=== PATIENT | male | born 1965 | race Asian ===

== ENCOUNTER 2022-11-14 01:17 | Inpatient (IN) | payer OTHER ==
[~2022-11-14] VITALS: Ht 167.6 cm; Wt 79.8 kg
--- NOTE | 2022-11-14 01:22 | NUR ---
PT CLAUDE ALS. TAKEN TO BED 2
[2022-11-14 01:23] VITALS: BP 118/67
--- NOTE | 2022-11-14 01:40 | NUR ---
Pt BIB BLS ambulance from home with c/o bloody stool. Pt reports he had loose stools with bright red blood x2 days. (+) Nausea, (-) Vomiting, fever, abd pain. Arrived to ED in no acute distress. Breathing adequately on RA. Addendum: 11/14/22 at 0317 by [id number] ALS*
--- NOTE | 2022-11-14 01:42 | NUR ---
MD Nieves at bedside examining pt.
[2022-11-14] MEDS ORDERED: NACL 0.9% 1,000 ML IV ONE ×2 (01:50→04:10)
[2022-11-14 02:10] LABS: BASOPHILS # (AUTO) 0.1 K/uL (0.00-0.22); BASOPHILS % (AUTO) 0.7 % (0.0-2.0); EOSINOPHILS # (AUTO) 0.2 K/uL (0-0.4); EOSINOPHILS % (AUTO) 1.9 % (0.0-4.0); HEMATOCRIT 31.6 % (36-52); HEMOGLOBIN 10.6 g/dL (12.0-18.0); LYMPHOCYTES # (AUTO) 1.7 K/uL (2.0-11.5); LYMPHOCYTES % (AUTO) 16.5 % (20.5-51.1); MEAN CORPUSCULAR HEMOGLOBIN 29 pg (27-31); MEAN CORPUSCULAR HGB CONC 34 g/dL (33-37); MEAN CORPUSCULAR VOLUME 86.5 fL (80-94); MONOCYTES # (AUTO) 0.6 K/uL (0.8-1.0); MONOCYTES % (AUTO) 5.8 % (1.7-9.3); NEUTROPHILS # (AUTO) 7.8 K/uL (1.8-7.7); NEUTROPHILS % (AUTO) 75.1 % (42.2-75.2); PLATELET COUNT (AUTO) 217 K/uL (140-450); RED BLOOD CELL COUNT(AUTO) 3.65 MIL/uL (4.20-6.10); RED CELL DISTRIBUTION WIDTH 12.9 % (11.6-13.7); WHITE BLOOD COUNT (AUTO) 10.4 K/uL (4.8-10.8)
--- NOTE | 2022-11-14 02:19 | NUR ---
RAD at bedside for imaging.
[2022-11-14 02:20] LABS: PROTHROMBIN TIME 10.9 secs (10.8-13.4)
[2022-11-14 02:22] LABS: ALBUMIN 3.2 g/dL (3.4-5.0); ANION GAP 8.9 (8-16); POTASSIUM 3.9 mmol/L (3.5-5.1); TOTAL BILIRUBIN 0.3 mg/dL (0.0-1.0)
--- NOTE | 2022-11-14 03:04 | NUR ---
Pt taken to CT for imaging.
[2022-11-14 05:52] LABS: HEMATOCRIT 29.1 % (36-52); HEMOGLOBIN 9.9 g/dL (12.0-18.0)
[2022-11-14] MEDS ORDERED: PANTOPRAZOLE 40 MG INJ VIAL IVP ONE (06:15)
[2022-11-14] MEDS ORDERED: DEXT 5% /NACL 0.9% 1,000 ML IV ONE (07:05)
--- NOTE | 2022-11-14 07:28 | NUR ---
Pt report/care endorsed to UZAIR Lazaro for continuity of care. Questions/Concerns answered.
[2022-11-14] MEDS ORDERED: ONDANSETRON 4 MG/2 ML VIAL IM/IVP PRN (08:30)
[2022-11-14] MEDS ORDERED: HYDROcodone/APAP 7.5/325 MG 1 TAB PO PRN (08:30)
[2022-11-14] MEDS ORDERED: ACETAMINOPHEN 325 MG TAB PO PRN (08:30)
[2022-11-14] MEDS ORDERED: POTASSIUM CHLORIDE 10 MEQ TABER PO PRN (08:30)
[2022-11-14] MEDS ORDERED: guaiFENesin DM 200/20 MG-10 ML 10 ML UDC PO PRN (08:30)
[2022-11-14] MEDS ORDERED: DOCUSATE SODIUM 100 MG GELCAP PO PRN (08:30)
[2022-11-14] MEDS ORDERED: ZOLPIDEM 5 MG TAB PO PRN (08:30)
[2022-11-14] MEDS: PANTOPRAZOLE 40 MG TABEC PO SCH (09:00)
[2022-11-14] MEDS: PSYLLIUM 12.2 GM/PKT PO SCH ×2 (09:00→21:51)
--- NOTE | 2022-11-14 10:37 | NUR ---
Patient will be admitted to care of RADHA ESCOBAR. Admited to MED SURG. Will go to room 105B. Belongings list completed. Report to ALLISON.
--- NOTE | 2022-11-14 11:00 | NUR ---
GOT REPORT FROM THE ER NURSE PT , PT A/OX4 DENIES OF THE BLEEDING FROM RECTAL NOW, HE SAYS IT STOPPED, REORIENTED TO THE HOSPITAL ENVIRONMENT, V.S STABLE, PT IN ROOM [id number]
[2022-11-14 12:28] LABS: PROTHROMBIN TIME 10.6 secs (10.8-13.4)
[2022-11-14 12:41] LABS: CHOL/HDL RATIO 5.2 (1-4.5); FREE T4 (FREE THYROXINE) 1.03 ng/dL (0.76-1.46); MAGNESIUM 1.7 mg/dL (1.8-2.4); THYROID STIMULATING HORMONE 0.68 uIU/mL (0.34-3.74)
--- NOTE | 2022-11-14 15:52 | NUR ---
PATIENT HAS BEEN SCREENED AND CATEGORIZED MODERATE NUTRITION RISK. PATIENT WILL BE SEEN WITHIN 3-5 DAYS OF ADMISSION. REVIEWED BY DORY PERSAUD RD
[2022-11-14 16:00] VITALS: BP 106/67
[2022-11-14 18:27] VITALS: BP 106/67
--- NOTE | 2022-11-14 19:27 | NUR ---
given report to the night nurse maria [email or web address]
--- NOTE | 2022-11-14 19:28 | NUR ---
RECD. RESTING IN BED, AWAKE, A/OX4. RESPIRATION EVEN AND UNLABORED. PLEASANT, ABLE TO VERBALIZED NEEDS. COLOR NORMAL PER ETHNICITY. IV SALINE LOCK G18, RIGHT HAND PATENT AND INTACT. ABLE TO AMBULATE TO THE REST ROOM. INSTRUCTED TO CALL NURSE WHENEVER HAVING A BM TO SEE IF THERE IS STILL BLEEDING. VERBALIZED UNDERSTANDING. DENIES PAIN 0/10.
[2022-11-14 20:00] VITALS: BP 121/71
--- NOTE | 2022-11-14 21:51 | NUR ---
WATCHING MOVIES IN HIS CELL PHONE. SCHEDULED MEDICATION ADMINISTERED.
[2022-11-15] VITALS: BP 118/65
--- NOTE | 2022-11-15 | NUR ---
SLEEPING COMFORTABLY IN BED. RESPIRATION EVEN AND UNLABORED. CALL LIGHT IN REACH.
--- NOTE | 2022-11-15 02:30 | NUR ---
CHECKED PATIENT, COVERED WITH BLANKETS FROM HEAD TO FOOT. WARM BLANKETS GIVEN.
[2022-11-15 04:00] VITALS: BP 113/69
[2022-11-15 04:08] LABS: APPEARANCE,URINE CLEAR (CLEAR); BILIRUBIN,URINE NEGATIVE (NEGATIVE); BLOOD, URINE NEGATIVE (NEGATIVE); COLOR,URINE YELLOW (YELLOW); LEUKOCYTE ESTERASE ,URINE NEGATIVE (NEGATIVE); NITRITE, URINE NEGATIVE (NEGATIVE); UGLUCOSE NEGATIVE (NEGATIVE)
[2022-11-15 04:21] LABS: BARBITURATE, URINE NEGATIVE ng/ml (NEG <=200); BENZODIAZEPINE, URINE NEGATIVE ng/mL (NEG <=200); CANNABINOID, URINE NEGATIVE ng/mL (NEG <=50); COCAINE, URINE NEGATIVE ng/mL (NEG <=300); OPIATE, URINE NEGATIVE ng/mL (NEG <=2000); PHENCYCLIDINE SCREEN,URINE NEGATIVE ng/mL (NEG <=25)
--- NOTE | 2022-11-15 04:30 | NUR ---
IN BED AWAKE, WATCHING MOVIES HIS ANUJA PHONE. NO COMPLAINT OF PAIN 0/10.
--- NOTE | 2022-11-15 06:14 | NUR ---
SITTING ON BED AWAKE. DENIES RECTAL BLEEDING. NO BM LAST NIGHT.
--- NOTE | 2022-11-15 07:10 | NUR ---
RECEIVED REPORT FROM NIGHT NURSE LEONIE FOR CONTINUITY OF CARE. INITIAL ASSESSMENT DONE. IV SITE INTACT. NO C/O PAIN OR DISCOMFORT. CALL LIGHT KEPT WITHIN REACH. WILL CONTINUE TO MONITOR.
--- NOTE | 2022-11-15 07:15 | NUR ---
ENDORSED TO AM SHIFT NURSE FOR CONTINUITY OF CARE.
[2022-11-15 07:19] LABS: BASOPHILS # (AUTO) 0.1 K/uL (0.00-0.22); BASOPHILS % (AUTO) 1.3 % (0.0-2.0); EOSINOPHILS # (AUTO) 0.3 K/uL (0-0.4); EOSINOPHILS % (AUTO) 4.5 % (0.0-4.0); HEMATOCRIT 28.8 % (36-52); HEMOGLOBIN 9.8 g/dL (12.0-18.0); LYMPHOCYTES # (AUTO) 2.2 K/uL (2.0-11.5); LYMPHOCYTES % (AUTO) 38.6 % (20.5-51.1); MEAN CORPUSCULAR HEMOGLOBIN 29 pg (27-31); MEAN CORPUSCULAR HGB CONC 34 g/dL (33-37); MONOCYTES # (AUTO) 0.4 K/uL (0.8-1.0); MONOCYTES % (AUTO) 6.5 % (1.7-9.3); NEUTROPHILS # (AUTO) 2.8 K/uL (1.8-7.7); NEUTROPHILS % (AUTO) 49.1 % (42.2-75.2); PLATELET COUNT (AUTO) 215 K/uL (140-450); RED BLOOD CELL COUNT(AUTO) 3.35 MIL/uL (4.20-6.10); RED CELL DISTRIBUTION WIDTH 12.7 % (11.6-13.7); WHITE BLOOD COUNT (AUTO) 5.7 K/uL (4.8-10.8)
[2022-11-15 07:44] LABS: ANION GAP 7.7 (8-16); CARBON DIOXIDE 28.7 mmol/L (21-32); CREATININE 0.7 mg/dL (0.6-1.3); POTASSIUM 3.4 mmol/L (3.5-5.1)
[2022-11-15 08:00] VITALS: BP 132/72
[2022-11-15 08:08] LABS: T4 (THYROXINE) 5.9 ug/dL (4.5-12.0)
[2022-11-15] MEDS ORDERED: MAGNESIUM OXIDE 400 MG TAB PO SCH (09:00)
--- NOTE | 2022-11-15 09:30 | NUR ---
NOTIFIED DR. ESCOBAR FOR MG 1.7 ON 11/14/22. NEW ORDER RECEIVED MAGNESIUM OXIDE 400 MG PO Q D. NOTED AND CARRIED OUT.
--- NOTE | 2022-11-15 10:24 | NUR ---
SEEN BY DR. WILSON, CLEARED FOR DISCHARGE.
[2022-11-15] MEDS ORDERED: PSYL0.4C2 PO (10:39)
[2022-11-15] MEDS: PSYLLIUM 12.2 GM/PKT PO SCH (10:39)
--- NOTE | 2022-11-15 10:39 | NUR ---
SCHEDULED MEDICATIONS GIVEN. TOLERATING WELL.
[2022-11-15] MEDS: PANTOPRAZOLE 40 MG TABEC PO SCH (10:40)
--- NOTE | 2022-11-15 15:05 | NUR ---
PT LEFT, DISCHARGE TO HOME. TRANSPORTED BY PRIVATE VEHICLE, AMBULATORY. ALERT AND ORIENTED X 4. IV AND ID BAND REMOVED. PERSONAL BELONGINGS TAKEN. DISCHARGE PAPERWORK DISCUSS AND SIGN BY PT. REMAINS STABLE.
[2022-11-15] MEDS ORDERED: POLYETHYLENE GLYCOL 17 GM/PKT PO SCH (21:00)
== END 2022-11-15 15:05 | disposition home or self-care (01) | DRG 378 ==
LOC: MED 01:17 → MMU 07:03 → MTU 08:16
PROVIDERS: ADMIT Family Medicine; ATTEND Family Medicine
DX: K57.91 Diverticulosis of intestine, part unspecified, without perforation or abscess with bleeding (principal); E44.0 Moderate protein-calorie malnutrition; E87.1 Hypo-osmolality and hyponatremia; D64.9 Anemia, unspecified; R73.9 Hyperglycemia, unspecified; E83.42 Hypomagnesemia; E78.5 Hyperlipidemia, unspecified; Z20.822 Contact with and (suspected) exposure to COVID-19; Z68.28 Body mass index [BMI] 28.0-28.9, adult
CPT/HCPCS: 36415; 71045; 80048; 80053; 80305; 81003; 82150; 83036; 83605; 83690; 83735; 83880; 84100; 84436; 84439; 84443; 84479; 85018; 85025; 85610; 85730; 86886; 86900; 86901; 87040; 87081; 87086; C9113; Q0092